=== PATIENT | male | born 1950 | race Caucasian/White ===

== ENCOUNTER 2017-03-31 04:08 | Observation (INO) | payer OTHER ==
[~2017-03-31] VITALS: Ht 193 cm; Wt 89.6 kg
[~2017-03-31 04:08] MED LIST: SOFO400T; [UNRECOGNIZED DRUG - CODE]
[2017-03-31] MEDS ORDERED: ASPIRIN 81 MG TABLET CHEW PO ONE (05:00)
[2017-03-31 05:36] LABS: BASOPHILS # (AUTO) 0.02 x10^3/uL (0-0.1); BASOPHILS % (AUTO) 0 % (0-1); EOSINOPHILS % (AUTO) 5 % (1-7); LYMPHOCYTES # (AUTO) 1.54 x10^3/uL (1-3.4); LYMPHOCYTES % (AUTO) 24 % (22-44); MD NO; MEAN CORPUSCULAR HEMOGLOBIN 32.2 pg (27.5-34.5); MEAN CORPUSCULAR HGB CONC 33.7 g/dL (33.2-36.2); MEAN CORPUSCULAR VOLUME 95.4 fL (81-97); MEAN PLATELET VOLUME 9.1 fL (7.4-10.4); MONOCYTES # (AUTO) 0.56 x10^3/uL (0.2-0.8); MONOCYTES % (AUTO) 9 % (2-9); NEUTROPHILS % (AUTO) 62 % (42-75); PLATELET COUNT 134 x10^3/uL (130-400); RED BLOOD COUNT 4.35 x10^6/uL (4.38-5.82); RED CELL DISTRIBUTION WIDTH 13.9 % (9.4-14.8)
[2017-03-31 05:45] LABS: ALBUMIN 3.2 g/dL (3.4-5.0); ANION GAP 5 mmol/L (5-15); CALCIUM 8.1 mg/dL (8.5-10.1); CHLORIDE 111 mmol/L (98-107)
[2017-03-31 05:51] LABS: CREATININE 0.89 mg/dL (0.7-1.3); TROPONIN I < 0.015 ng/mL (0.000-0.045)
[2017-03-31] MEDS ORDERED: SODIUM CHLORIDE FLUSH 10ML SYR IVF PRN (07:30)
[2017-03-31] MEDS ORDERED: TADA5TAB2 PO (07:48)
[2017-03-31] MEDS ORDERED: TADA20TA PO (07:48)
[2017-03-31] MEDS ORDERED: VALA500T4 PO (07:48)
[2017-03-31 08:52] VITALS: BP 120/78
[2017-03-31] MEDS ORDERED: CYAN25009 PO (10:49)
[2017-03-31 12:22] LABS: TROPONIN I < 0.015 ng/mL (0.000-0.045)
[2017-03-31] MEDS ORDERED: hydrALAzine 20 MG/ML, 1ML IVPush PRN (13:30)
[2017-03-31] MEDS ORDERED: morphine SULFATE 10 MG/ML, 1ML IVPush PRN (13:30)
[2017-03-31] MEDS ORDERED: ONDANSETRON 2MG/ML, 2ML IVPush PRN (13:30)
[2017-03-31] MEDS ORDERED: TEMAZEPAM 15 MG CAPSULE PO PRN (13:30)
[2017-03-31] MEDS ORDERED: HYDROcodone/APAP 5/325 TABLET PO PRN (13:30)
[2017-03-31] MEDS ORDERED: ACETAMINOPHEN 325 MG TABLET PO PRN (13:30)
[2017-03-31] MEDS: SODIUM CHLORIDE 0.9% 1,000 ML IV SCH (13:57)
[2017-03-31] MEDS ORDERED: ENOXAPARIN 40 MG/0.4 ML SQ SCH (14:00)
[2017-03-31 17:41] VITALS: BP 112/68
[2017-03-31 18:46] VITALS: BP 100/57
[2017-04-01 00:10] VITALS: BP 118/70
[2017-04-01] MEDS: SODIUM CHLORIDE 0.9% 1,000 ML IV SCH ×2 (00:18→00:53)
[2017-04-01 05:12] LABS: ANION GAP 8 mmol/L (5-15); CALCIUM 7.9 mg/dL (8.5-10.1); CHLORIDE 110 mmol/L (98-107)
[2017-04-01 05:24] LABS: CHOL/HDL RATIO 3.4; CHOLESTEROL, TOTAL 128 mg/dL (140-239); CREATININE 0.95 mg/dL (0.7-1.3); HDL CHOL % 30 % (26-37); HDL CHOLESTEROL (DIRECT) 38 mg/dL (40-60); LDL CHOLESTEROL,CALCULATED 67 mg/dL (54-169); LDL/HDL RATIO 1.8 (0.5-3.0); TRIGLYCERIDES 115 mg/dL (50-200); VLDL CHOLESTEROL 23 mg/dL (0-25)
[2017-04-01 07:39] VITALS: BP 105/67
== END 2017-04-01 13:05 | disposition home or self-care (01) ==
LOC: ED 05:07 → EDIP 07:11 → INTOOBSV 07:11 → 5SO 08:41
PROVIDERS: ADMIT Internal Medicine; ATTEND Internal Medicine
DX: I20.0 Unstable angina (principal); R79.89 Other specified abnormal findings of blood chemistry; Z85.51 Personal history of malignant neoplasm of bladder; Z87.891 Personal history of nicotine dependence; Z90.49 Acquired absence of other specified parts of digestive tract; Z90.6 Acquired absence of other parts of urinary tract
CPT/HCPCS: 36415; 71046; 80048; 80061; 82040; 83880; 84443; 84484; 85025; 93005; 93017; 96360; 96361; 99285; G0378; J7030

== ENCOUNTER → 2017-09-01 | Outpatient (CLI) | payer OTHER ==
[~2017-09-01] MED LIST changes: +CYAN25009 PO; +TADA20TA PO; +TADA5TAB2 PO; +VALA500T4 PO
== END ==
LOC: CFH 08:32
PROVIDERS: ATTEND Internal Medicine Cardiovascular Disease
DX: I07.1 Rheumatic tricuspid insufficiency (principal)
CPT/HCPCS: 93306

== ENCOUNTER 2017-11-16 09:51 | Emergency (ER) | payer OTHER ==
[~2017-11-16] VITALS: Ht 195.6 cm; Wt 92.5 kg
[2017-11-16] MEDS ORDERED: ASPIRIN 81 MG TABLET CHEW ONE (10:30)
[2017-11-16] MEDS ORDERED: NITROGLYCERIN OINT 2%, 1GM TP ONE ×2 (10:30)
[2017-11-16] MEDS ORDERED: ASPIRIN 81 MG TABLET CHEW PO ONE (10:30)
[2017-11-16] MEDS ORDERED: SODIUM CHLORIDE FLUSH 10ML SYR IVF ONE (10:30)
[2017-11-16] MEDS ORDERED: OMEG1CAP23 PO (10:38)
[2017-11-16] MEDS ORDERED: MAGN300C PO (10:39)
[2017-11-16] MEDS ORDERED: TADA20TA PO (10:40)
[2017-11-16] MEDS ORDERED: IBUP-1623 PO (10:40)
[2017-11-16] MEDS ORDERED: IBUP200T49 PO (10:40)
[2017-11-16 10:41] LABS: BASOPHILS # (AUTO) 0.03 x10^3/uL (0-0.1); BASOPHILS % (AUTO) 0 % (0-1); EOSINOPHILS # (AUTO) 0.04 x10^3/uL (0-0.4); EOSINOPHILS % (AUTO) 0 % (1-7); LYMPHOCYTES # (AUTO) 0.96 x10^3/uL (1-3.4); LYMPHOCYTES % (AUTO) 11 % (22-44); MD NO; MEAN CORPUSCULAR HEMOGLOBIN 32.4 pg (27.5-34.5); MEAN CORPUSCULAR HGB CONC 33.9 g/dL (33.2-36.2); MEAN CORPUSCULAR VOLUME 95.8 fL (81-97); MEAN PLATELET VOLUME 9.4 fL (7.4-10.4); MONOCYTES # (AUTO) 0.54 x10^3/uL (0.2-0.8); MONOCYTES % (AUTO) 6 % (2-9); NEUTROPHILS # (AUTO) 7.47 x10^3/uL (1.8-6.8); NEUTROPHILS % (AUTO) 83 % (42-75); PLATELET COUNT 143 x10^3/uL (130-400); RED CELL DISTRIBUTION WIDTH 13.6 % (9.4-14.8)
[2017-11-16] MEDS ORDERED: OXYC-302 PO (10:41)
[2017-11-16 10:44] VITALS: BP 116/77
[2017-11-16 10:52] LABS: ALANINE AMINOTRANSFERASE 20 U/L (12-78); ALBUMIN 3.5 g/dL (3.4-5.0); ANION GAP 5 mmol/L (5-15); CALCIUM 8.6 mg/dL (8.5-10.1); CHLORIDE 108 mmol/L (98-107)
[2017-11-16 10:57] LABS: ALKALINE PHOSPHATASE 81 U/L (45-117); BILIRUBIN,TOTAL 1.4 mg/dL (0.2-1.0); CREATININE 1.11 mg/dL (0.7-1.3); TROPONIN I < 0.015 ng/mL (0.000-0.045)
== END 2017-11-16 12:28 | disposition home or self-care (01) ==
LOC: ED 12:00
DX: R07.89 Other chest pain (principal)
CPT/HCPCS: 36415; 71045; 80053; 83690; 84484; 85025; 93005; 99285